=== PATIENT | male | born 1965 | race Caucasian/White ===

== ENCOUNTER → 2023-12-20 07:48 | Outpatient (REF) | payer OTHER, SELFPAY | LOC: RCS 07:48 | PROVIDERS: ATTENDING PHYSICIAN Orthopaedic Surgery; FAMILY PHYSICIAN Family Medicine | DX: Z01.818 Encounter for other preprocedural examination (principal) | CPT/HCPCS: 93005 ==

== ENCOUNTER 2024-11-12 15:52 | Emergency (ER) | payer OTHER, SELFPAY ==
[2024-11-12 16:04] VITALS: BP 139/84
--- NOTE | 2024-11-12 17:39 | ED.SKININJ ---
HPI-Injury
General
Chief Complaint: Skin Problem
Source: patient
Exam Limitations: none
Time Seen by Provider: 11/12/24 17:29
History of Present Illness-Injury
Is this injury a work related problem?: No
Is pt an associate of [facility]/[place]?: No
Initial Injury comments:
Patient to ED with increasing pain, redness, swelling to right nare. Symptoms started 2 days ago. Tried to squeeze nose to release any pus. No drainage noted. Brought self to ED for eval.
Past History
Past History
ED Past Medical History: None
ED Past Surgical History: None
Review of Systems
Review of Systems
Allergies reviewed?: Yes
All Other Systems: ROS reviewed and negative except as documented in HPI and ROS
Constitutional: Reports no symptoms
EENT: Reports other (pain redness swelling to right lateral nare)
Respiratory: Reports no symptoms
Cardiac: Reports no symptoms
ABD/GI: Reports no symptoms
Musculoskeletal: Reports no symptoms
Skin: Reports no symptoms
Neurological: Reports no symptoms
Psychiatric: Reports no symptoms
Phy Exam
General Physical Exam
General Presentation: well appearing and no apparent distress
General age: appears stated age
General Skin: warm and dry
General Habitus: normal
General Mental: alert
ENT Exam
ENT Exam: EOMI, neck supple, swallowing well and other (lateral mucosa of right nare with small area of swelling and erythema. No fluctuance, no drainage.)
Musculoskeletal Exam
Musculoskeletal Exam: full ROM and neuro vasc intact
Skin Exam
Skin Exam: warm/dry and no rash
Psychiatric Exam
Psychiatric Exam: normal mood/affect
Course
Orders/Labs/Results
Orders:
Orders
11/12/24 17:35
Amoxicillin 875 mg/Clav 125 mg [Augmentin 875 mg/125 mg] 1 tablet PO NOW STA
11/12/24 17:41
Mupirocin [Bactroban 2% Ointment] See Dose Instructions NASAL NOW STA
Vital Signs
Initial and Last Documented VS:
Initial Vital Signs
Temp Pulse Resp BP Pulse Ox
98.3 F 80 16 139/84 96
11/12/24 16:04 11/12/24 16:04 11/12/24 16:04 11/12/24 16:04 11/12/24 16:04
Last Documented Vital Signs
Temp Pulse Resp BP Pulse Ox
98.3 F 80 16 139/84 96
11/12/24 16:04 11/12/24 16:04 11/12/24 16:04 11/12/24 16:04 11/12/24 16:04
*Critical Care Note
Total Time (30-74mins, 75-104mins- exclusive of procedures): Not Applicable
Update Note
Update Note:
Patient to ED wtih swelling and pain to right nare. No fluctuance to mucosal swelling of right lateral nare. Will place on augmentin and mupirocin, close follow up with PCP. He was given instructions on s/s to return to ED and he is agreeable to
plan.
ED Attending Note
-
Portions of this chart may have been created with voice recognition software.� Occasional wrong word or��sound alike� substitutions may have occurred due to the inherent limitations of voice recognition software.
Discharge Plan
Departure
Patient Disposition: Home (Routine Discharge)
Date of Disposition: 11/12/24
Time of Disposition: 17:36
Patient with high blood pressure during this ER visit?: No
Condition: Good
Covid-19: Not Applicable
Discharge Problem:
Nose cellulitis
Instructions: Cellulitis (Skin Infection), Adult (DC)
Prescriptions:
New
amoxicillin-pot clavulanate 875-125 mg tablet
1 tab PO BID Qty: 20 0RF
mupirocin 2 % ointment
1 applic topical BID Qty: 15 0RF
Referrals:
Donn Owens MD [Family Provider] -
Activity Restrictions/Additional Instructions:
Return to the emergency department immediately for fever/chills, increasing pain/redness/swelling to your nose, or for any further concerns. Do not pick or squeeze your nose.
Interventions
Interventions:
*Risk Screen - Suicide Last Done: 11/12/24 16:04
*General Assessment Last Done: 11/12/24 16:04
*Neglect/Abuse Screening Last Done: 11/12/24 16:04
ED- Fall Risk Assessment Last Done: 11/12/24 17:43
*ED COVID-19 Vaccine History Last Done: 11/12/24 16:04
ED-Skin Assessment Last Done: 11/12/24 17:43
Discharge Date and Time
Print Language: SOMALI
[2024-11-12] MEDS: BACTROBAN 2% OINTMENT 1 APPLIC NASAL (17:46)
[2024-11-12] MEDS: AUGMENTIN 875 MG/125 MG 1 TABLET PO (17:46)
== END 2024-11-12 17:59 | disposition home or self-care (01) ==
LOC: EMR 15:52
PROVIDERS: EMERGENCY PHYSICIAN Emergency Medicine; FAMILY PHYSICIAN Family Medicine
DX: J34.0 Abscess, furuncle and carbuncle of nose (principal)
CPT/HCPCS: 99283